=== PATIENT | female | born 1975 | race Caucasian/White ===

== ENCOUNTER 2016-04-28 08:41 | Emergency (ER) | payer OTHER ==
[2016-04-28] MEDS ORDERED: NORMAL SALINE 1000 ML 1,000 ML IV ONE (09:09)
[2016-04-28] MEDS ORDERED: KETOROLAC TROMETHAMINE INJ/PF 30 MG/1 ML SDV IV ONE (09:09)
--- NOTE | 2016-04-28 09:09 | ER Document Report ---
ED General - General Mode of Arrival: Ambulatory Information source: Patient TRAVEL OUTSIDE OF THE [place] IN LAST 30 DAYS: No - HPI Patient complains to provider of: Weakness Onset: This morning Onset/Duration: Gradual, Persistent Associated symptoms: Nonproductive cough, Headache, Shortness of breath, Sweating, Weakness. denies: Fever, Nausea <LEATHA ALSTON - Last Filed: 04/28/16 09:17> <TARA WATKINS - Last Filed: 04/28/16 11:59> - General Chief Complaint: Dizziness Stated Complaint: BLOOD PRESURE PROBLEM Notes: Patient is a 40-year-old female sent over from Dr. Alston's office, where she is employed, with concerns of generalized weakness onset last night. Patient states that when she was getting ready for work this morning, she felt weak, lightheaded, diaphoretic, and had a mild occipital headache. Once patient arrived at work, patient states that she felt as though she was breathing heavily and was short of breath. Dr. Alston called and reported a heart rate of 130 on the patient. Patient states she still feels like she is breathing heavier than usual. Patient denies fever or nausea. Patient states she hasn't had anything to eat today. Patient has had a mild nonproductive cough with sinus pressure for the past week. The only medication the patient has taken recently is cough syrup last night at approximately 2100. (LEATHA ALSTON) - Related Data Allergies/Adverse Reactions: Sulfa (Sulfonamide Antibiotics) Allergy (Severe, Verified 04/28/16 08:48) Hives Past Medical History - General Information source: Patient - Social History Smoking Status: Unknown if Ever Smoked Cigarette use (# per day): No Chew tobacco use (# tins/day): No Frequency of alcohol use: Occasional Drug Abuse: None Family History: Reviewed & Not Pertinent Patient has suicidal ideation: No Patient has homicidal ideation: No Past Surgical History: Reports: Hx Breast Surgery - Augmentation, Hx Hysterectomy - Dec 2014, Hx Orthopedic Surgery - Knee - Immunizations Hx Diphtheria, Pertussis, Tetanus Vaccination: Yes - 2008 <LEATHA ALSTON - Last Filed: 04/28/16 09:17> Review of Systems - Review of Systems Constitutional: See HPI, Diaphoresis, Weakness. denies: Fever EENT: See HPI, Sinus pressure Cardiovascular: See HPI, Lightheaded Respiratory: See HPI, Cough. denies: Sputum Gastrointestinal: See HPI. denies: Nausea Genitourinary: No symptoms reported Female Genitourinary: No symptoms reported Musculoskeletal: No symptoms reported Skin: No symptoms reported Hematologic/Lymphatic: No symptoms reported Neurological/Psychological: See HPI, Headaches -: Yes All other systems reviewed and negative <LEATHA ALSTON - Last Filed: 04/28/16 09:17> Physical Exam - Vital signs Interpretation: Hypertensive - General General appearance: Alert - HEENT Head: Normocephalic, Atraumatic Eyes: Normal Pupils: PERRL - Respiratory Respiratory status: No respiratory distress Chest status: Nontender Breath sounds: Wheezing, Other - Coarse breath sounds with mild wheezes. - Cardiovascular Rhythm: Regular Heart sounds: Normal auscultation Murmur: No - Abdominal Inspection: Normal - Back Back: Normal - Extremities General upper extremity: Normal inspection General lower extremity: Normal inspection - Neurological Neuro grossly intact: Yes Cognition: Normal [place] Coma Scale Eye Opening: Spontaneous [place] Coma Scale Verbal: Oriented [place] Coma Scale Motor: Obeys Commands [place] Coma Scale Total: 15 Speech: Normal - Psychological Associated symptoms: Normal affect, Normal mood - Skin Skin Temperature: Warm Skin Moisture: Moist Skin Color: Normal <LEATHA ALSTON - Last Filed: 04/28/16 09:17> <TARA WATKINS - Last Filed: 04/28/16 11:59> - Vital signs Vitals: Temp Pulse Resp BP Pulse Ox 98.7 F 107 H 18 149/95 H 100 04/28/16 08:49 04/28/16 08:49 04/28/16 08:49 04/28/16 08:49 04/28/16 08:49 (LEATHA ALSTON) (TARA WATKINS) Course <LEATHA ALSTON - Last Filed: 04/28/16 09:17> - Laboratory Result Diagrams: 04/28/16 09:25 04/28/16 09:25 - Diagnostic Test Radiology reviewed: Image reviewed, Reports reviewed - Chest x-ray does not show an acute process. - EKG Interpretation by Nv EKG shows normal: Sinus rhythm, [place], Intervals, QRS Complexes, ST-T Waves Rate: Normal - 79 Rhythm: NSR <TARA WATKINS - Last Filed: 04/28/16 11:59> - Re-evaluation Re-evalutation: 04/28/16 11:52 Patient states she does feel somewhat better. She reports she still feels like her breathing is heavy. Her pulse ox is 100% on room air and she is not tachypneic. Her heart rate is in the mid 80s at this point. It was 79 when the EKG was done at 0840 this morning. The chest x-ray is unremarkable. The d-dimer is 0.28, the white blood cell count is 3500 without shift. A TSH was checked and that is also normal. I suspect her symptoms of a dry cough, headache, sinus pressure, feeling weak, and being tachycardic with clammy sweaty feelings in the office are due to a viral illness. She was advised to bed rest, plenty of fluids, Tylenol and ibuprofen for pain or fever. She is to return if there is any new or worsening symptoms or tachycardias. (TARA WATKINS) - Vital Signs Vital signs: Temp Pulse Resp BP Pulse Ox 98.7 F 107 H 17 131/90 H 100 04/28/16 08:49 04/28/16 08:49 04/28/16 10:01 04/28/16 10:00 04/28/16 10:01 (LEATHA ALSTON) (TARA WATKINS) - Laboratory Laboratory results interpreted by me: 04/28/16 04/28/16 09:25 09:25 WBC 3.5 L Total Protein 8.4 H Albumin 5.3 H (TARA WATKINS) Discharge <LEATHA ALSTON - Last Filed: 04/28/16 09:17> <TARA WATKINS - Last Filed: 04/28/16 11:59> - Discharge Clinical Impression: Viral syndrome Condition: Stable Disposition: HOME, SELF-CARE Additional Instructions: Viral Syndrome: The physician has diagnosed a viral infection. Viruses not only cause "colds," but can cause many different symptoms including generalized aching, fever, headache, cough, diarrhea, nausea, vomiting, and fatigue. The treatment, for the most part, is simply relief of symptoms. This means that antibiotics are usually not given. Rest, fluids, pain medications and, occasionally, medication for the specific symptoms that are most bothersome will be prescribed. Use good handwashing to avoid passing the virus to others. Shared toys should be cleaned with disinfectant. Clean the toilets, sinks, and counter surfaces in bathrooms. Launder clothing in hot water. Contact the physician if you develop any new or unusual symptoms such as severe headache, stiff neck, high fever, chest pain, productive cough, or shortness of breath. You should be rechecked if you don't see marked improvement within seven to 10 days. DRINK PLENTY OF FLUIDS TODAY. REST. TAKE TYLENOL AND MOTRIN OR ALEVE FOR PAIN, FEVER OR CHILLS. FOLLOW UP WITH YOUR DOCTOR IF NOT IMPROVING. RETURN TO THE EMERGENCY ROOM IF ANY NEW OR WORSENING SYMPTOMS. RETURN IF YOUR HEART BEGINS BEATING FAST AGAIN. Scribe Attestation: 04/28/16 11:59 I personally performed the services described in the documentation, reviewed and edited the documentation which was dictated to the scribe in my presence, and it accurately records my words and actions. (TARA WATKINS) Scribe Documentation - Scribe Written by Georgina:: Leatha Alston 04/28/2016 [id number] acting as scribe for :: Alicia <LEATHA ALSTON - Last Filed: 04/28/16 09:17>
[2016-04-28 09:56] LABS: ABSOLUTE LYMPHOCYTES (AUTO) 1.1 10^3/uL (0.5-4.7); ABSOLUTE MONOCYTES (AUTO) 0.2 10^3/uL (0.1-1.4); ABSOLUTE NEUT (AUTO) 2.1 10^3/uL (1.7-8.2); BASOPHILS % (AUTO) 0.7 % (0-2); EOSINOPHILS % (AUTO) 1.3 % (0-6); HEMATOCRIT 45.5 % (36.0-47.0); HEMOGLOBIN 15.4 g/dL (12.0-15.5); HGB HCT DIFFERENCE 0.7; LYMPHOCYTES % (AUTO) 32.2 % (13-45); MEAN CORPUSCULAR HEMOGLOBIN 30.4 pg (27.0-33.4); MEAN CORPUSCULAR HGB CONC 33.8 g/dL (32.0-36.0); MEAN CORPUSCULAR VOLUME 90 fl (80-97); RED BLOOD COUNT 5.06 10^6/uL (3.72-5.28); RED CELL DISTRIBUTION WIDTH 12.5 % (11.5-14.0); SEGMENTED NEUTROPHILS % (AUTO) 60.8 % (42-78); WHITE BLOOD COUNT 3.5 10^3/uL (4.0-10.5)
[2016-04-28 10:16] LABS: ALANINE AMINOTRANSFERASE 23 U/L (9-52); ALBUMIN 5.3 g/dL (3.5-5.0); ALKALINE PHOSPHATASE 81 U/L (38-126); ANION GAP 15 (5-19); ASPARTATE AMINO TRANSFERASE 25 U/L (14-36); BILIRUBIN,TOTAL 0.8 mg/dL (0.2-1.3); BLOOD UREA NITROGEN 12 mg/dL (7-20); CALCIUM 10.2 mg/dL (8.4-10.2); CARBON DIOXIDE 24 mmol/L (22-30); CHLORIDE 103 mmol/L (98-107); CREATINE KINASE 95 U/L (30-135); CREATININE RESULT 0.74 mg/dL (0.52-1.25); GLUCOSE 94 mg/dL (75-110); SODIUM 142.1 mmol/L (137-145); TOTAL PROTEIN 8.4 g/dL (6.3-8.2)
[2016-04-28 10:28] LABS: CREATINE KINASE MB 0.94 ng/mL (<4.55)
[2016-04-28 10:29] LABS: TROPONIN I < 0.012 ng/mL
[2016-04-28 12:10] VITALS: BP 125/81
--- NOTE | 2016-04-28 12:43 | EKG REPORT ---
SEVERITY:- NORMAL ECG - SINUS RHYTHM : Confirmed by: Carolina Mercado MD 28-Apr-2016 12:42:26
== END 2016-04-28 12:05 | disposition home or self-care (01) ==
LOC: ER 08:41
DX: B34.9 Viral infection, unspecified (principal); R53.1 Weakness; R42 Dizziness and giddiness; R61 Generalized hyperhidrosis; R51 Headache; R06.09 Other forms of dyspnea; R05 Cough; R06.2 Wheezing; J34.89 Other specified disorders of nose and nasal sinuses; R00.0 Tachycardia, unspecified; Z88.2 Allergy status to sulfonamides
CPT/HCPCS: 93005; 99284; 96361; 96374; 36415; 87040; 82553; 82550; 84443; 85025; 80053; 84484; 85379; 87804; 71020; 93010; J1885; J7030